=== PATIENT | female | born 1960 | race Caucasian/White ===

== ENCOUNTER 2017-04-22 08:19 | Outpatient (CLI) | payer BC ==
--- NOTE | 2017-04-23 18:37 | Mammography Report ---
DIGITAL SCREENING MAMMOGRAM: 04/22/2017 CLINICAL INDICATION: A 56-year-old nulliparous patient with history of excisional biopsy, family his tory of breast cancer for screening. COMPARISON: 01/2015, 01/2014, 05/2013, 04/2013. TECHNIQUE: Routine CC and MLO projections were obtained of the breasts. FINDINGS: The breasts again demonstrate heterogeneously dense fibroglandular parenchyma bilaterally. Postoperative changes in the right breast are stable. Coarse and punctate, typically benign calcif ications are present. No suspicious masses, clustered microcalcifications, or regions of architectur al distortion are identified. IMPRESSION: BENIGN FINDINGS. RECOMMENDATION: Routine annual screening unless otherwise clinically indicated. BI-RADS category 2, benign findings. STANDARD QUALIFYING STATEMENTS 1. This examination was reviewed with the aid of Computer-Aided Detection (CAD). 2. A negative or benign imaging report should not delay biopsy if clinically suspicious findings are present. Consider surgical consultation if warranted. More than 5% of cancers are not identified by i maging. 3. Dense breasts may obscure an underlying neoplasm. JOB #: [id number] EXT JOB #:[id number]
== END 2017-04-22 08:20 | disposition home or self-care (01) ==
LOC: DI 08:19
PROVIDERS: ATTEND Physician Assistant Medical
DX: Z12.31 Encounter for screening mammogram for malignant neoplasm of breast (principal); Z80.3 Family history of malignant neoplasm of breast
CPT/HCPCS: 77067

== ENCOUNTER 2017-04-22 08:22 | Outpatient (CLI) | payer BC ==
--- NOTE | 2017-04-23 14:30 | DEXA Report ---
DEXA SCAN: 04/22/2017 CLINICAL INDICATION: Postmenopausal. TECHNIQUE: Dual energy x-ray absorptiometry (DXA) was performed on a [employer] system. Regions measured are the AP spine, femoral neck, and, if needed, forearm. COMPARISON: None. In accordance with the International Society for Clinical Densitometry (ISCD) guidelines, data from previous exams may be reanalyzed using current recommendations and techniques. This is done to allow a more accurate basis for comparison with the current study. FINDINGS The data for the lumbar spine is as follows: REGION BMD (g/cm/cm) T-SCORE Z-SCORE L1 0.931 -1.7 -0.5 L2 0.979 -1.8 -0.6 L3 1.128 -0.6 0.6 L4 1.143 -0.5 0.7 TOTAL 1.055 -1.0 0.2 NOTE: All evaluable vertebrae are used for classification. The data for the hip is as follows: REGION BMD (g/cm/cm) T-SCORE Z-SCORE Neck 0.837 -1.4 -0.2 TOTAL 0.890 -0.9 0.0 NOTE: The femoral neck or total proximal femur, whichever is lowest, is used for classification. IMPRESSION: THE WHO CLASSIFICATION BASED ON THE INTERNATIONAL REFERENCE STANDARD IS OSTEOPENIA (REFERENCE LEFT FEMORAL NECK). THE FRACTURE RISK IS INCREASED. RECOMMENDATION: Patients with diagnosis of osteoporosis or osteopenia should have regular bone mineral density assessment. For those eligible for Medicare, routine testing is allowed once every 2 years. Testing frequency can be increased for patients who have rapidly progressing disease or for those who are receiving medical therapy to restore bone mass. COMMENT: World Health Organization (WHO) definitions for osteoporosis and osteopenia: NORMAL BMD: T-score at -1.0 or higher, fracture risk is low. OSTEOPENIA BMD: T-score between -1.0 and -2.5, fracture risk is increased. OSTEOPOROSIS BMD: T-score at -2.5 or lower, fracture risk high. National Osteoporosis Foundation recommends: 1. Obtain adequate dietary calcium (at least 1200 mg per day) and vitamin D (400 -800 international units per day). 2. Participate, as appropriate, in regular weightbearing and muscle- strengthening exercise. 3. Avoid tobacco use and reduce alcohol and caffeine intake. 4. For more detailed information see the website at www.NOF.org. MTDD
== END 2017-04-22 08:23 | disposition home or self-care (01) ==
LOC: DI 08:22
PROVIDERS: ATTEND Physician Assistant Medical
DX: M85.89 Other specified disorders of bone density and structure, multiple sites (principal)
CPT/HCPCS: 77080

== ENCOUNTER 2018-05-01 07:15 | Outpatient (CLI) | payer OTHER ==
--- NOTE | 2018-05-01 09:22 | CARDIAC PROCEDURE NOTE ---
DATE OF SERVICE: 05/01/2018 Physician: Ally Roger MD INDICATION: Abnormal EKG. CARDIAC RISK FACTORS: Postmenopausal status. The patient had chest pain approximately 10 days ago. SUMMARY: After signing informed consent, the patient performed a Al protocol treadmill stress test. The patient exercised for 6 minutes and 58 seconds. The patient had minimal shortness of breath at peak, had no chest pressure anteriorly or between her scapulae. O2 saturation was 99% (checked 1 minute into recovery) on room air. RESTING EKG: Normal sinus rhythm, T-wave flattening in leads III, aVF, and V4 through V5. Resting heart rate 75, peak heart rate 143 (88% predicted maximum heart rate for age), she achieved 8.5 METS. Resting blood pressure 126/88, peak blood pressure 160/80. PEAK EKG: The patient developed right axis deviation, persistent flattening of T waves in leads III and aVF, as well as V3 through V6. In recovery, she had return of normal axis and her baseline T-wave abnormalities after 4 min. IMPRESSION: 1. Fair exercise tolerance. 2. Abnormal resting EKG. 3. Borderline abnormal EKG changes for ischemia, at an adequate level of stress. 4. Due to right axis deviation with exercise, consider right heart disease as well. RECOMMENDATIONS: Repeat cardiac stress test using imaging (Stress Echo or nuclear stress test). An Echo would evaluate the RV as well. cc: Lashanda Kaplan, TD: 05/01/2018 08:57 MTDD
== END 2018-05-01 07:16 | disposition home or self-care (01) ==
LOC: DI 07:15
PROVIDERS: ATTEND Nurse Practitioner
DX: R94.31 Abnormal electrocardiogram [ECG] [EKG] (principal)

== ENCOUNTER 2018-06-11 08:14 | Outpatient (CLI) | payer OTHER | END 2018-06-11 08:15 | disposition home or self-care (01) | LOC: DI 08:14 | PROVIDERS: ATTEND Nurse Practitioner | DX: R94.31 Abnormal electrocardiogram [ECG] [EKG] (principal); R07.9 Chest pain, unspecified | CPT/HCPCS: 93306 ==

== ENCOUNTER 2019-02-17 08:00 | Outpatient (CLI) | payer OTHER | END 2019-02-17 23:59 | disposition home or self-care (01) | LOC: LAB.R 08:00 | PROVIDERS: ATTEND Family Medicine | DX: R30.0 Dysuria (principal) | CPT/HCPCS: 87086 ==

== ENCOUNTER 2019-05-18 08:00 | Outpatient (CLI) | payer OTHER | END 2019-05-18 23:59 | disposition home or self-care (01) | LOC: LAB.WCP 08:00 | PROVIDERS: ATTEND Nurse Practitioner Family | DX: R05 Cough (principal) | CPT/HCPCS: 36415; 85379 ==

== ENCOUNTER 2019-05-18 13:46 | Outpatient (CLI) | payer OTHER ==
--- NOTE | 2019-05-18 14:03 | XRAY Report ---
Reason: COUGH Procedure Date: 05/18/2019 Accession Number: [id number] / [id number] Procedure: WCP - Chest 2 View X-Ray CPT Code: 77704 Final Report FULL RESULT: EXAM: CHEST RADIOGRAPHY EXAM DATE: 05/18/2019 01:46 PM. CLINICAL HISTORY: Cough. COMPARISON: None. TECHNIQUE: 2 views. FINDINGS: Lungs/Pleura: No focal opacities evident. No pleural effusion. No pneumothorax. Normal volumes. Mediastinum: Heart and mediastinal contours are unremarkable. Other: Colonic interposition is noted underneath the right hemidiaphragm. IMPRESSION: No acute cardiopulmonary abnormality. RADIA
== END 2019-05-18 23:59 | disposition home or self-care (01) ==
LOC: DI.WCP 13:46
PROVIDERS: ATTEND Nurse Practitioner Family
DX: R05 Cough (principal)
CPT/HCPCS: 71046

== ENCOUNTER 2019-06-10 10:49 | Outpatient (CLI) | payer OTHER ==
--- NOTE | 2019-06-10 16:34 | DEXA Report ---
Reason: BONE DISORDER Procedure Date: 06/10/2019 Accession Number: [id number] / [id number] Procedure: DEX - Dexa Spine and/or Hip CPT Code: Final Report FULL RESULT: EXAM: Dexa Spine and/or Hip DATE: 06/10/2019 11:11 AM CLINICAL HISTORY: The patient is a 58-year-old postmenopausal female on calcium supplementation. TECHNIQUE: Dual energy x-ray absorptiometry (DXA) was performed on a [employer] System. Regions measured are the AP Spine, femoral neck, and if needed forearm. COMPARISON: 04/22/2017 In accordance with the International Society for Clinical Densitometry (ISCD) guidelines, data from previous exams may be reanalyzed using current recommendations and techniques. This is done to allow a more accurate basis for comparison with the current study. FINDINGS: The data for the lumbar spine is as follows: BMD (g/cm/cm) T-SCORE Z-SCORE REGION L1 0.944 -1.5 -0.2 L2 1.007 -1.6 -0.2 L3 1.116 -0.7 0.7 L4 1.166 -0.3 1.1 TOTAL 1.066 -1.0 0.4 NOTE: All evaluable vertebrae are used for classification The data for the hip is as follows: BMD (g/cm/cm) T-SCORE Z-SCORE REGION Neck 0.791 -1.8 -0.4 TOTAL 0.902 -0.8 0.2 NOTE: The femoral neck or total proximal femur, whichever is lowest, is used for classification. DXA RESULTS SUMMARY: Spine SCAN DATE A[age] BMD CHANGE VS CHANGE VS PREVIOUS PREVIOUS % 5/10[birth year]2019 [age] 1[age]066 0.011 1.0 04/22/2017 [age] 1.055 * Denotes significant change at the 95% confidence level. Denotes dissimilar scan types or analysis methods. DXA RESULTS SUMMARY: Hip SCAN DATE AGE BMD CHANGE VS CHANGE VS PREVIOUS PREVIOUS % [birth year]10[birth year]2019 [age] 0[age]902 0.012 1.3 04/22/2017 [age] 0.890 * Denotes significant change at the 95% confidence level. Denotes dissimilar scan types or analysis methods. IMPRESSION: 1. THE WHO CLASSIFICATION BASED ON THE INTERNATIONAL REFERENCE STANDARD IS OSTEOPENIA, REFERENCE FEMORAL NECK. THE FRACTURE RISK REMAINS INCREASED. 2. THERE IS NO STATISTICALLY SIGNIFICANT CHANGE SINCE THE PRIOR STUDY. RECOMMENDATION: Patients with diagnosis of osteoporosis or osteopenia should have regular bone mineral density assessment. For those eligible for Medicare, routine testing is allowed once every 2 years. Testing frequency can be increased for patients who have rapidly progressing disease or for those who are receiving medical therapy to restore bone mass. COMMENT: World Health Organization (WHO) definitions for osteoporosis and osteopenia: NORMAL BMD: T-score at -1.0 or higher, fracture risk is low OSTEOPENIA BMD: T-score between -1.0 and -2.5, fracture risk is increased. OSTEOPOROSIS BMD: T-score at -2.5 or lower, fracture risk is high. National Osteoporosis Foundation recommends: 1. Obtain adequate dietary calcium (at least 1200 mg per day) and vitamin D (400-800 international units per day). 2. Participate, as appropriate, in regular weightbearing and muscle-strengthening exercise. 3. Avoid tobacco use and reduce alcohol and caffeine intake. 4. For more detailed information see the website at www.NOF.org.
== END 2019-06-10 10:50 | disposition home or self-care (01) ==
LOC: DI 10:49
PROVIDERS: ATTEND Family Medicine
DX: M85.89 Other specified disorders of bone density and structure, multiple sites (principal)
CPT/HCPCS: 77080

== ENCOUNTER 2020-06-15 10:45 | Outpatient (CLI) | payer OTHER ==
--- NOTE | 2020-06-16 07:43 | Mammography Report ---
BILATERAL DIGITAL SCREENING MAMMOGRAM 3D/2D: 06/15/2020 CLINICAL: Family history of breast cancer. Routine screening. Comparison is made to exams dated: 04/22/2017 mammogram, 01/20/2015 mammogram, 01/19/2014 localization, breast MRI, 05/26/2013 mammogram, and 05/20/2013 mammogram - [facility]. Th e tissue of both breasts is heterogeneously dense. This may lower the sensitivity of mammography. No significant masses, calcifications, or other findings are seen in either breast. There has been no significant interval change. IMPRESSION: NEGATIVE There is no mammographic evidence of malignancy. A 1 year screening mammogram is recommended. This exam was interpreted at Station ID: [id number]. NOTE: For mammograms, a report in lay terms will be sent to the patient. Approximately 15% of breast malignancies will not be visualized mammographically. In the management of a palpable breast mass, a negative mammogram must not discourage biopsy of a clinically suspicious lesion. Electronically Signed By: Indra Staley M.D. ddandrew/juan:06/15/2020 11:48:46 ACR BI-RADS Category 1: Negative 3341F PARENCHYMAL PATTERN: (D) - The breast(s) demonstrate(s) heterogeneously dense fibroglandular myke araiza. BI-RADS CATEGORY: (1) - 1 RECOMMENDATION: (ANNUAL) - Recommend routine annual screening mammography. [id number] 1 year screening LATERALITY: (B)
== END 2020-06-15 10:46 | disposition home or self-care (01) ==
LOC: DI.N 10:45
PROVIDERS: ATTEND Family Medicine
DX: Z12.31 Encounter for screening mammogram for malignant neoplasm of breast (principal); Z80.3 Family history of malignant neoplasm of breast

== ENCOUNTER 2021-03-23 10:11 | Outpatient (CLI) | payer SELFPAY | END 2021-03-23 23:59 | disposition home or self-care (01) | LOC: LAB.N 10:11 | PROVIDERS: ATTEND Nurse Practitioner | DX: R07.0 Pain in throat (principal) | CPT/HCPCS: 87070 ==

== ENCOUNTER 2022-11-15 09:22 | Outpatient (CLI) | payer SELFPAY ==
--- NOTE | 2022-11-16 10:18 | Mammography Report ---
BILATERAL DIGITAL SCREENING MAMMOGRAM 3D/2D: 11/15/2022 CLINICAL: Family history of breast cancer. Routine screening. Comparison is made to exams dated: 06/15/2020 mammogram, 04/22/2017 mammogram, 01/20/2015 mammogram, 01/19 localization, 11/18/2013 breast MRI, and 05/26/2013 mammogram - [facility]. Both breasts are heterogeneously dense, which may obscure small masses (category c / 51-75% glandular tissue). No significant masses, calcifications, or other findings are seen in either breast. There has been no significant interval change. IMPRESSION: NEGATIVE There is no mammographic evidence of malignancy. A 1 year screening mammogram is recommended. Based on Tyrer-Cuzick model (a risk assessment model), the patient's lifetime risk is 24.2% and her 1 0 year risk is 11.0%. If a patient has an elevated risk, a more comprehensive evaluation should be co nsidered and/or a referral to a genetic counselor. The [place] Cancer Society, [employer] College of R adiology, and NCCN Guidelines advise the consideration of Breast MRI as an adjunct to screening mammo graphy in patients whose "Lifetime risk to develop breast cancer" is 20% or higher. This exam was interpreted at Station ID: [id number]. NOTE: For mammograms, a report in lay terms will be sent to the patient. Approximately 15% of breast malignancies will not be visualized mammographically. In the management of a palpable breast mass, a negative mammogram must not discourage biopsy of a clinically suspicious lesion. Electronically Signed By: Jamia kitchen/juan:11/15/2022 10:58:37 letter sent: No_Letter ACR BI-RADS Category 1: Negative 3341F PARENCHYMAL PATTERN: (D) - The breast(s) demonstrate(s) heterogeneously dense fibroglandular parjose roberto araiza. BI-RADS CATEGORY: (1) - 1 Mammogram [id number] 1 year screening LATERALITY: (B)
== END 2022-11-15 09:23 | disposition home or self-care (01) ==
LOC: DI.N 09:22
DX: Z12.31 Encounter for screening mammogram for malignant neoplasm of breast (principal); Z80.3 Family history of malignant neoplasm of breast

== ENCOUNTER 2024-02-26 10:01 | Outpatient (CLI) | payer BC ==
[2024-02-26] MEDS ORDERED: iohexoL-300 100 ML VIAL ONE (10:10)
[2024-02-26 10:24] LABS: CREATININE 0.7 mg/dL (0.6-1.3)
[2024-02-26] MEDS: iohexoL-300 100 ML VIAL IVP ONE (12:54)
--- NOTE | 2024-02-27 17:14 | CT Report ---
PROCEDURE: Soft Tissue Neck W INDICATIONS: CERVICAL LYMPHADENOPATHY TECHNIQUE: Helical axial CT of the neck was obtained after an intravenous contrast injection, and re formatted in multiple planes. Radiation dose reduction was achieved using automated exposure control or adjustment of mA and/or kV according to patient size. COMPARISON: None. FINDINGS: Skull Base: The visualized intracranial contents, skull, and orbits are unremarkable. Visualized par anasal sinuses are clear. Pharynx and Larynx: The nasopharyngeal airway is patent and midline. Parapharyngeal soft tissues in cluding palantine tonsils and base of the tongue are normal. Retropharyngeal space unremarkable. No rmal appearance of the false and true vocal cords. Muscles and Fascial Planes: Fascial planes are well maintained. No abscess or mass lesion. Lymph Nodes: Corresponding with the palpable abnormality, there is a small deep cervical lymph node measuring 8 x 5 mm Vasculature: Unremarkable. Submandibular and Parotid Glands: Normal in size and attenuation. Thyroid: Unremarkable. No enlarged or calcified nodules. Bones: No acute fracture. No osteolytic or blastic lesion is evident. Normal bone mineralization. R eversal of normal cervical lordosis Lung Apices: The visualized lung apices are clear. IMPRESSION: Small normal appearing lymph node corresponds with the palpable abnormality. No adenopathy. Reviewed by: Ned Marie MD on 02/27/2024 4:13 PM ROE Approved by: Ned Marie MD on 02/27/2024 4:13 PM AKMARCO Station ID: [id number]
== END 2024-02-26 10:02 | disposition home or self-care (01) ==
LOC: LAB 10:01
PROVIDERS: ATTEND Physician Assistant Medical
DX: R59.0 Localized enlarged lymph nodes (principal)
CPT/HCPCS: 36415; 70491; 82565; Q9967